=== PATIENT | female | born 1980 | race African-American/Black ===

== ENCOUNTER 2024-03-01 19:07 | Emergency (ER) | payer OTHER ==
[~2024-03-01] VITALS: Ht 162.6 cm; Wt 78.0 kg
[2024-03-01 19:09] VITALS: O2SAT 100
[2024-03-01 20:15] LABS: BASOPHILS % 0.5 % (0.0-2.0); EOSINOPHILS % 1.7 % (0.0-5.0); HEMATOCRIT. 37.7 % (36.0-48.0); HEMOGLOBIN. 12.7 g/dL (12.0-16.0); LYMPHOCYTES % 34.3 % (20.0-50.0); MEAN CORPUSCULAR HEMOGLOBIN 29.4 pg (28.0-32.0); MEAN CORPUSCULAR HGB CONC 33.6 g/dL (31.0-37.0); MEAN CORPUSCULAR VOLUME 87.5 fL (81.0-99.0); MEAN PLATELET VOLUME 8.9 fl (7.4-10.4); MONOCYTES % 5.4 % (2.0-8.0); NEUTROPHILS % 58.1 % (40.0-76.0); PLATELET 218 x1000/uL (130-400); RED BLOOD CELL COUNT 4.31 mill/uL (4.2-5.4); RED CELL DISTRIBUTION WIDTH 13.8 % (11.6-14.6); WHITE BLOOD COUNT 6.2 x1000/uL (4.5-11.0)
[2024-03-01 20:21] LABS: CHLORIDE 107 mEq/L (98-107); POTASSIUM 3.8 mEq/L (3.5-5.1); SODIUM 139 mEq/L (136-145)
[2024-03-01 20:22] LABS: CALCIUM 9.7 mg/dL (8.7-10.4); CARBON DIOXIDE 22 mEq/L (21-32)
[2024-03-01 20:27] LABS: GLUCOSE 95 mg/dL (70-105); UREA NITROGEN BLOOD 10 mg/dL (9-23)
[2024-03-01 20:30] LABS: HCG SCREEN NEGATIVE
[2024-03-01] MEDS: LORAZEPAM 1MG TABLET PO ONE (20:39)
[2024-03-01] MEDS ORDERED: KEPP500 MT (21:10)
[2024-03-01] MEDS ORDERED: HYDR-459 MT (21:10)
[2024-03-01 22:23] VITALS: BP 121/72; PULSE 90; RESP 18; TEMP 98
== END 2024-03-01 22:30 | disposition home or self-care (01) ==
LOC: ER 19:07
DX: R56.9 Unspecified convulsions (principal); F41.9 Anxiety disorder, unspecified
CPT/HCPCS: 80048; 84703; 85025; 36415; 93005; 99284; Z7610